=== PATIENT | female | born 2000 | race Caucasian/White ===

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

== ENCOUNTER 2022-05-10 17:28 | Emergency (ER) | payer MEDICAID ==
[~2022-05-10] VITALS: Ht 162.6 cm; Wt 72.7 kg
[2022-05-10 20:06] LABS: URINE HCG NEGATIVE (NEG)
[2022-05-10 20:10] LABS: CLARITY,URINE CLEAR (Clear); COLOR,URINE YELLOW (Yellow); GLUCOSE, URINE NEGATIVE (Neg); KETONES,URINE NEGATIVE (Neg); LEUKOCYTE ESTERASE ,URINE NEGATIVE (Neg); NITRITES, URINE NEGATIVE (Neg); OCCULT BLOOD,URINE SMALL (Neg); PROTEIN,URINE NEGATIVE (Neg); UROBILINOGEN,URINE 0.2 E.U/dL (0.2-1.0)
[2022-05-10 20:12] LABS: UA COLLECTION TYPE CLN CATCH MIDSTREAM
[2022-05-10 20:19] LABS: BACTERIA,URINE FEW /HPF (Neg); RBC,URINE 0-2 /HPF (0-2); SQUAMOUS EPITHELIAL CELL,UR FEW /LPF (FEW); WBC,URINE NONE SEEN /HPF (0-4)
[2022-05-10] MEDS ORDERED: ketorolac trometh inj. 60 MG/2 ML VIAL IM ONE (21:35)
[2022-05-10] MEDS ORDERED: dicyclomine 10mg/ml 2ml ampule IM ONE (21:35)
[2022-05-10] MEDS ORDERED: ondansetron 4mg rapidly disintigrating tab PO ONE (21:35)
[2022-05-10] MEDS ORDERED: NAPR-56 PO (21:41)
[2022-05-10] MEDS ORDERED: DICY10CA88 PO (21:41)
[2022-05-10 22:12] VITALS: BP 113/70
== END 2022-05-10 22:14 | disposition home or self-care (01) ==
LOC: ER 17:29
DX: N94.6 Dysmenorrhea, unspecified (principal); Z88.0 Allergy status to penicillin; Z79.899 Other long term (current) drug therapy
CPT/HCPCS: 81001; 81025; 96372; 99284; J0500; J1885